=== PATIENT | male | born 1965 | race Caucasian/White ===

== ENCOUNTER 2020-04-14 23:05 | Emergency (ER) | payer OTHER ==
[~2020-04-14] VITALS: Ht 170.2 cm; Wt 95.3 kg
[2020-04-14] MEDS ORDERED: LOSARTAN POTASS25 MG PO (23:16)
== END 2020-04-15 01:06 | disposition home or self-care (01) ==
LOC: ED 23:05
DX: T40.7X1A Poisoning by cannabis (derivatives), accidental (unintentional), initial encounter (principal); I10 Essential (primary) hypertension; Z79.899 Other long term (current) drug therapy
CPT/HCPCS: 99284